=== PATIENT | female | born 1980 | race Caucasian/White ===

== ENCOUNTER 2017-11-14 10:33 | Emergency (ER) | payer MEDICAID ==
[~2017-11-14] VITALS: Ht 162.6 cm; Wt 74.7 kg
[~2017-11-14 10:33] MED LIST: ACET-812 PO; ALBU6.7H INH; DIPH-681 PO; NITR100C6 PO
[2017-11-14 10:43] VITALS: BP 107/63
[2017-11-14] MEDS ORDERED: TAM75C PO (11:07)
== END 2017-11-14 11:35 | disposition home or self-care (01) ==
LOC: ER 10:34
DX: R05 Cough (principal); J45.909 Unspecified asthma, uncomplicated; K21.9 Gastro-esophageal reflux disease without esophagitis; F17.200 Nicotine dependence, unspecified, uncomplicated; F12.10 Cannabis abuse, uncomplicated; Z87.442 Personal history of urinary calculi; Z88.0 Allergy status to penicillin; Z88.2 Allergy status to sulfonamides; Z88.6 Allergy status to analgesic agent; Z88.1 Allergy status to other antibiotic agents; Z56.0 Unemployment, unspecified; Z88.8 Allergy status to other drugs, medicaments and biological substances; Z91.040 Latex allergy status
CPT/HCPCS: 99283

== ENCOUNTER 2018-03-22 12:54 | Emergency (ER) | payer MEDICAID ==
[~2018-03-22] VITALS: Ht 160 cm; Wt 71.0 kg
[2018-03-22 13:06] VITALS: BP 116/77
[2018-03-22 13:32] LABS: CLARITY,URINE CLOUDY (Clear); COLOR,URINE YELLOW (Yellow); GLUCOSE, URINE NEGATIVE (Neg); KETONES,URINE NEGATIVE (Neg); LEUKOCYTE ESTERASE ,URINE TRACE (Neg); NITRITES, URINE NEGATIVE (Neg); OCCULT BLOOD,URINE NEGATIVE (Neg); PH,URINE 5.5 (4.8-8.0); PROTEIN,URINE NEGATIVE (Neg); UROBILINOGEN,URINE 0.2 E.U/dL (0.2-1.0)
[2018-03-22 13:33] LABS: UA COLLECTION TYPE CLN CATCH MIDSTREAM; URINE HCG NEGATIVE (NEG)
[2018-03-22 13:41] LABS: SQUAMOUS EPITHELIAL CELL,UR MANY /LPF (FEW)
[2018-03-22 13:43] LABS: BACTERIA,URINE 2+ /HPF (Neg)
[2018-03-22 13:44] LABS: MUCUS STRANDS MANY /LPF (Neg); RBC,URINE 0-2 /HPF (0-2)
[2018-03-22] MEDS ORDERED: NITR100C6 PO (13:52)
[2018-03-22] MEDS ORDERED: PHEN-824 PO (13:52)
== END 2018-03-22 14:06 | disposition home or self-care (01) ==
LOC: ER 12:54
DX: N39.0 Urinary tract infection, site not specified (principal); J45.909 Unspecified asthma, uncomplicated; K21.9 Gastro-esophageal reflux disease without esophagitis; F12.90 Cannabis use, unspecified, uncomplicated; Z88.0 Allergy status to penicillin; Z88.1 Allergy status to other antibiotic agents; Z88.2 Allergy status to sulfonamides; Z91.040 Latex allergy status; Z88.8 Allergy status to other drugs, medicaments and biological substances; Z79.899 Other long term (current) drug therapy; Z56.0 Unemployment, unspecified
CPT/HCPCS: 81001; 81025; 99283

== ENCOUNTER 2018-05-10 12:50 | Emergency (ER) | payer MEDICAID ==
[~2018-05-10] VITALS: Ht 162.6 cm; Wt 65.0 kg
[~2018-05-10 12:50] MED LIST changes: +PHEN-824 PO
[2018-05-10] MEDS ORDERED: normal saline 1000ML IV soln IV ONE (13:10)
[2018-05-10 13:35] LABS: BASOPHILS % (AUTO) 0.1 % (0-1); EOSINOPHILS # (AUTO) 0.3 X10'3 (0-0.9); EOSINOPHILS % (AUTO) 1.9 % (0-6); HEMATOCRIT 37.5 % (35.0-45.0); HEMOGLOBIN 12.4 g/dl (12.0-16.0); LYMPHOCYTES # (AUTO) 1.2 X10'3 (1.1-4.8); LYMPHOCYTES % (AUTO) 9.2 % (21-51); MEAN CORPUSCULAR HGB CONC 33.1 % (33.0-36.5); MEAN CORPUSCULAR VOLUME 84.4 FL (78-98); MEAN PLATELET VOLUME 7.6 FL (7.4-10.4); MONOCYTES # (AUTO) 0.6 X10'3 (0-0.9); MONOCYTES % (AUTO) 4.6 % (2-12); NEUTROPHILS % (AUTO) 84.2 % (42-75); PLATELET COUNT 430 X10'3 (140-440); RED BLOOD COUNT 4.44 X10'6 (4.20-5.60); RED CELL DISTRIBUTION WIDTH 15.4 % (11.5-14.5); WHITE BLOOD COUNT 13.1 X10'3 (4.5-11.0)
[2018-05-10 13:41] LABS: ALANINE AMINOTRANSFERASE 15 U/L (12-78); ALBUMIN 3.5 G/DL (3.4-5.0); ALBUMIN/GLOBULIN RATIO 0.8 (1.1-1.5); ALKALINE PHOSPHATASE 71 IU/L (46-116); ANION GAP 11 (8-16); ASPARTATE AMINO TRANSFERASE 11 U/L (10-37); BILIRUBIN,TOTAL 0.5 MG/DL (0.1-1.0); BLOOD UREA NITROGEN 16 MG/DL (7-18); BUN/CREATININE RATIO 15.2 (6.6-38.0); CHLORIDE 101 MMOL/L (99-107); CREATININE 1.05 MG/DL (0.40-0.90); GLUCOSE 140 MG/DL (70-104); POTASSIUM 3.5 MMOL/L (3.5-5.1); SODIUM 136 MMOL/L (135-145); eGFR 59 ML/MIN
[2018-05-10 13:49] LABS: MAGNESIUM 1.8 MG/DL (1.5-2.4); PHOSPHORUS 2.4 MG/DL (2.3-4.5)
[2018-05-10] MEDS ORDERED: proCHLORperazine 10 MG/2 ml inj IV PRN (13:55)
[2018-05-10 14:40] LABS: URINE HCG NEGATIVE (NEG)
[2018-05-10 14:55] LABS: CLARITY,URINE SLIGHTLY CLOUDY (Clear); COLOR,URINE YELLOW (Yellow); GLUCOSE, URINE NEGATIVE (Neg); KETONES,URINE NEGATIVE (Neg); LEUKOCYTE ESTERASE ,URINE LARGE (Neg); NITRITES, URINE NEGATIVE (Neg); OCCULT BLOOD,URINE TRACE-INTACT (Neg); PH,URINE 5.5 (4.8-8.0); PROTEIN,URINE TRACE mg/dl (Neg); UROBILINOGEN,URINE 0.2 E.U/dL (0.2-1.0)
[2018-05-10 14:57] LABS: UA COLLECTION TYPE CLN CATCH MIDSTREAM
[2018-05-10] MEDS ORDERED: NITR100C6 PO (15:02)
[2018-05-10 15:05] LABS: MUCUS STRANDS MANY /LPF (Neg); SQUAMOUS EPITHELIAL CELL,UR MANY /LPF (FEW)
[2018-05-10 15:06] LABS: BACTERIA,URINE 2+ /HPF (Neg)
[2018-05-10 15:07] LABS: RBC,URINE 0-2 /HPF (0-2); WBC,URINE 20-30 /HPF (0-4)
[2018-05-10 16:03] VITALS: BP 113/74
[2018-05-12 11:16] LABS: RPR Reactive (Non Reactive)
== END 2018-05-10 16:04 | disposition home or self-care (01) ==
LOC: ER 12:51
DX: N39.0 Urinary tract infection, site not specified (principal); R55 Syncope and collapse; R53.1 Weakness; R42 Dizziness and giddiness; K21.9 Gastro-esophageal reflux disease without esophagitis; J45.909 Unspecified asthma, uncomplicated; F12.90 Cannabis use, unspecified, uncomplicated; Z88.0 Allergy status to penicillin; Z88.1 Allergy status to other antibiotic agents; Z91.040 Latex allergy status; Z88.6 Allergy status to analgesic agent; Z88.2 Allergy status to sulfonamides; Z88.8 Allergy status to other drugs, medicaments and biological substances; Z79.899 Other long term (current) drug therapy; Z56.0 Unemployment, unspecified
CPT/HCPCS: 36415; 80053; 81001; 81025; 83735; 84100; 84443; 84484; 85025; 86592; 96360; 96361; 99285; J7030

== ENCOUNTER 2018-05-16 13:35 | Emergency (ER) | payer MEDICAID ==
[~2018-05-16] VITALS: Ht 162.6 cm; Wt 67.0 kg
[2018-05-16 13:47] VITALS: BP 109/63
[2018-05-16] MEDS ORDERED: DOXY100C43 PO (15:21)
== END 2018-05-16 15:27 | disposition home or self-care (01) ==
LOC: ER 13:36
DX: A51.0 Primary genital syphilis (principal); J45.909 Unspecified asthma, uncomplicated; K21.9 Gastro-esophageal reflux disease without esophagitis; F12.10 Cannabis abuse, uncomplicated; Z87.442 Personal history of urinary calculi; Z56.0 Unemployment, unspecified; Z88.0 Allergy status to penicillin; Z88.1 Allergy status to other antibiotic agents; Z88.2 Allergy status to sulfonamides; Z79.899 Other long term (current) drug therapy
CPT/HCPCS: 99283

== ENCOUNTER 2018-06-29 10:30 | Emergency (ER) | payer MEDICAID ==
[~2018-06-29] VITALS: Ht 167.6 cm; Wt 69.0 kg
[2018-06-29 10:36] VITALS: BP 111/66
[2018-06-29] MEDS ORDERED: ketorolac tromethamine 15mg/ml inj. IM ONE (11:55)
[2018-06-29] MEDS ORDERED: ketorolac trometh inj. 60 MG/2 ML VIAL IM ONE (12:35)
== END 2018-06-29 12:42 | disposition home or self-care (01) ==
LOC: ER 10:31
DX: M25.512 Pain in left shoulder (principal); J45.909 Unspecified asthma, uncomplicated; K21.9 Gastro-esophageal reflux disease without esophagitis; F12.90 Cannabis use, unspecified, uncomplicated; Z88.0 Allergy status to penicillin; Z88.1 Allergy status to other antibiotic agents; Z91.040 Latex allergy status; Z88.2 Allergy status to sulfonamides; Z88.6 Allergy status to analgesic agent; Z87.442 Personal history of urinary calculi; Z56.0 Unemployment, unspecified; Z79.899 Other long term (current) drug therapy
CPT/HCPCS: 73000; 96372; 99284; A4565; J1885

== ENCOUNTER 2019-03-29 12:27 | Emergency (ER) | payer MEDICAID ==
[~2019-03-29] VITALS: Ht 162.6 cm; Wt 66.0 kg
[2019-03-29 13:10] LABS: BASOPHILS # (AUTO) 0.1 X10'3 (0-0.2); BASOPHILS % (AUTO) 1.1 % (0-1); EOSINOPHILS # (AUTO) 0.1 X10'3 (0-0.9); EOSINOPHILS % (AUTO) 1.6 % (0-6); HEMATOCRIT 39.7 % (35.0-45.0); HEMOGLOBIN 13.4 g/dl (12.0-16.0); LYMPHOCYTES # (AUTO) 2.4 X10'3 (1.1-4.8); LYMPHOCYTES % (AUTO) 28.9 % (21-51); MEAN CORPUSCULAR HEMOGLOBIN 30.4 PG (27.0-31.0); MEAN CORPUSCULAR HGB CONC 33.7 g/dL (33.0-36.5); MEAN CORPUSCULAR VOLUME 90.2 FL (78-98); MEAN PLATELET VOLUME 7.3 FL (7.4-10.4); MONOCYTES # (AUTO) 0.5 X10'3 (0-0.9); MONOCYTES % (AUTO) 6.5 % (2-12); NEUTROPHILS # (AUTO) 5.2 X10'3 (1.8-7.7); NEUTROPHILS % (AUTO) 61.9 % (42-75); PLATELET COUNT 509 X10'3 (140-440); RED BLOOD COUNT 4.41 X10'6 (4.20-5.60); WHITE BLOOD COUNT 8.4 X10'3 (4.5-11.0)
[2019-03-29 13:14] LABS: URINE HCG NEGATIVE (NEG)
[2019-03-29 13:20] LABS: CLARITY,URINE CLOUDY (Clear); COLOR,URINE RED (Yellow); GLUCOSE, URINE NEGATIVE (Neg); KETONES,URINE NEGATIVE (Neg); LEUKOCYTE ESTERASE ,URINE SMALL (Neg); NITRITES, URINE NEGATIVE (Neg); OCCULT BLOOD,URINE LARGE (Neg); PH,URINE 5.5 (4.8-8.0); PROTEIN,URINE 100 mg/dl (Neg); UROBILINOGEN,URINE 0.2 E.U/dL (0.2-1.0)
[2019-03-29 13:25] LABS: ALANINE AMINOTRANSFERASE 14 U/L (12-78); ALBUMIN 3.5 G/DL (3.4-5.0); ALBUMIN/GLOBULIN RATIO 0.9 (1.1-1.5); ALKALINE PHOSPHATASE 77 IU/L (46-116); ANION GAP 6 (8-16); ASPARTATE AMINO TRANSFERASE 7 U/L (10-37); BILIRUBIN,TOTAL 0.3 MG/DL (0.1-1.0); BLOOD UREA NITROGEN 11 MG/DL (7-18); BUN/CREATININE RATIO 12.2 (6.6-38.0); CHLORIDE 105 MMOL/L (99-107); GLUCOSE 86 MG/DL (70-104); POTASSIUM 3.9 MMOL/L (3.5-5.1); SODIUM 140 MMOL/L (135-145); TOTAL PROTEIN 7.3 G/DL (6.4-8.2); eGFR 70 ML/MIN
[2019-03-29 13:29] LABS: BETA HCG,QUANTITATIVE < 1.0 mIU/ml; UA COLLECTION TYPE CLN CATCH MIDSTREAM
[2019-03-29 13:34] LABS: BACTERIA,URINE 3+ /HPF (Neg); MUCUS STRANDS NONE SEEN /LPF (Neg); RBC,URINE TNTC /HPF (0-2); SQUAMOUS EPITHELIAL CELL,UR MANY /LPF (FEW); TRANSITIONAL EPI CELLS,URINE FEW /HPF
[2019-03-29 13:45] VITALS: BP 113/86
== END 2019-03-29 13:48 | disposition home or self-care (01) ==
LOC: ER 12:28
DX: O20.9 Hemorrhage in early pregnancy, unspecified (principal); O26.891 Other specified pregnancy related conditions, first trimester; O99.511 Diseases of the respiratory system complicating pregnancy, first trimester; O99.611 Diseases of the digestive system complicating pregnancy, first trimester; S93.492A Sprain of other ligament of left ankle, initial encounter; J45.909 Unspecified asthma, uncomplicated; F12.90 Cannabis use, unspecified, uncomplicated; K21.9 Gastro-esophageal reflux disease without esophagitis; Z56.0 Unemployment, unspecified; Z87.442 Personal history of urinary calculi; Z88.0 Allergy status to penicillin; Z88.1 Allergy status to other antibiotic agents; Z88.2 Allergy status to sulfonamides; Z91.040 Latex allergy status; Z79.899 Other long term (current) drug therapy; Z88.8 Allergy status to other drugs, medicaments and biological substances; Z3A.12 12 weeks gestation of pregnancy
CPT/HCPCS: 36415; 73610; 73630; 80053; 81001; 81025; 84702; 85025; 99284

== ENCOUNTER 2019-05-10 00:37 | Emergency (ER) | payer MEDICAID ==
[~2019-05-10] VITALS: Ht 162.6 cm; Wt 63.5 kg
[~2019-05-10 00:37] MED LIST changes: -ALBU6.7H INH; +ALBU6.7H9 INH
[2019-05-10] MEDS ORDERED: ACET-3068 PO (01:33)
[2019-05-10] MEDS ORDERED: CEPH500C5 PO (01:33)
[2019-05-10] MEDS ORDERED: vancomycin/NS 1 GM ADD-VANTAGE 250 ML IV ONE (01:35)
[2019-05-10] MEDS ORDERED: morphine 4 MG/ML inj SYRINge IV ONE (01:35)
[2019-05-10 03:44] VITALS: BP 123/69
== END 2019-05-10 03:47 | disposition home or self-care (01) ==
LOC: ER 00:37
DX: T63.301A Toxic effect of unspecified spider venom, accidental (unintentional), initial encounter (principal); L03.211 Cellulitis of face; J45.909 Unspecified asthma, uncomplicated; K21.9 Gastro-esophageal reflux disease without esophagitis; F17.200 Nicotine dependence, unspecified, uncomplicated; F12.90 Cannabis use, unspecified, uncomplicated; Z56.0 Unemployment, unspecified; Z88.0 Allergy status to penicillin; Z88.1 Allergy status to other antibiotic agents; Z91.040 Latex allergy status; Z88.2 Allergy status to sulfonamides; Z88.6 Allergy status to analgesic agent; Z79.899 Other long term (current) drug therapy; Z79.2 Long term (current) use of antibiotics; Y92.89 Other specified places as the place of occurrence of the external cause
CPT/HCPCS: 96365; 96375; 99284; J2270; J3370; 99283

== ENCOUNTER 2019-05-12 06:44 | Emergency (ER) | payer MEDICAID ==
[~2019-05-12] VITALS: Ht 162.6 cm; Wt 63.6 kg
[~2019-05-12 06:44] MED LIST changes: +ACET-3068 PO; +CEPH500C5 PO
[2019-05-12] MEDS ORDERED: LIDOcaine 1% w/epiNEPHrine 1:200,000 30ml vial IM ONE (07:20)
--- NOTE | 2019-05-12 08:28 | NUR ---
ORTHO CARLY IN ROOM
[2019-05-12] MEDS ORDERED: TRAM50TA2 PO (08:38)
[2019-05-12] MEDS ORDERED: CLIN-96 PO (08:38)
[2019-05-12 08:43] VITALS: BP 136/90
== END 2019-05-12 08:50 | disposition home or self-care (01) ==
LOC: ER 06:45
DX: S62.316A Displaced fracture of base of fifth metacarpal bone, right hand, initial encounter for closed fracture (principal); L02.01 Cutaneous abscess of face; J45.909 Unspecified asthma, uncomplicated; K21.9 Gastro-esophageal reflux disease without esophagitis; F17.200 Nicotine dependence, unspecified, uncomplicated; F12.90 Cannabis use, unspecified, uncomplicated; F15.90 Other stimulant use, unspecified, uncomplicated; Z56.0 Unemployment, unspecified; Z88.0 Allergy status to penicillin; Z87.442 Personal history of urinary calculi; Z88.1 Allergy status to other antibiotic agents; Z91.040 Latex allergy status; Z88.2 Allergy status to sulfonamides; Z88.6 Allergy status to analgesic agent; Z88.8 Allergy status to other drugs, medicaments and biological substances; Z79.2 Long term (current) use of antibiotics; Z79.899 Other long term (current) drug therapy; W22.8XXA Striking against or struck by other objects, initial encounter; Y93.89 Activity, other specified; Y92.89 Other specified places as the place of occurrence of the external cause; Y99.8 Other external cause status
CPT/HCPCS: 10060; 29125; 73130; 99283

== ENCOUNTER 2019-05-30 12:48 | Emergency (ER) | payer MEDICAID ==
[~2019-05-30] VITALS: Ht 162.6 cm; Wt 63.6 kg
[~2019-05-30 12:48] MED LIST changes: +CLIN-96 PO
--- NOTE | 2019-05-30 13:00 | NUR ---
Patient brought back directly from Triage to Bed 21 via ambulatory, assisted by kishan Edmonds. Changed into hospital gowns and made comfortable in bed. Served lunch. Ate 100% of her meal. Dr. Houston here to examine the patient. Orders written. Xray performed on right hand. Fracture noted. chief technology officer here to cast hand. Pt. tolerated this procedure well.
[2019-05-30 13:42] LABS: ALANINE AMINOTRANSFERASE 23 U/L (12-78); ALBUMIN 3.7 G/DL (3.4-5.0); ALBUMIN/GLOBULIN RATIO 0.9 (1.1-1.5); ALKALINE PHOSPHATASE 77 IU/L (46-116); ANION GAP 7 (8-16); ASPARTATE AMINO TRANSFERASE 14 U/L (10-37); BILIRUBIN,TOTAL 0.5 MG/DL (0.1-1.0); BLOOD UREA NITROGEN 20 MG/DL (7-18); BUN/CREATININE RATIO 20.8 (6.6-38.0); CALCIUM 8.8 MG/DL (8.5-10.1); CHLORIDE 104 MMOL/L (99-107); CREATININE 0.96 MG/DL (0.40-0.90); GLUCOSE 161 MG/DL (70-104); POTASSIUM 3.7 MMOL/L (3.5-5.1); SODIUM 138 MMOL/L (135-145); TOTAL CARBON DIOXIDE 27.2 MMOL/L (24-32); TOTAL PROTEIN 7.7 G/DL (6.4-8.2); eGFR 65 ML/MIN
[2019-05-30 13:52] LABS: ETHANOL < 0.010 GM/DL (0.0-0.010)
[2019-05-30 14:05] LABS: BASOPHILS # (AUTO) 0.1 X10'3 (0-0.2); BASOPHILS % (AUTO) 0.6 % (0-1); EOSINOPHILS # (AUTO) 0.1 X10'3 (0-0.9); HEMATOCRIT 42.2 % (35.0-45.0); HEMOGLOBIN 14.3 g/dl (12.0-16.0); LYMPHOCYTES # (AUTO) 1.6 X10'3 (1.1-4.8); LYMPHOCYTES % (AUTO) 16.7 % (21-51); MEAN CORPUSCULAR HEMOGLOBIN 30.5 PG (27.0-31.0); MEAN CORPUSCULAR HGB CONC 33.8 g/dL (33.0-36.5); MEAN CORPUSCULAR VOLUME 90.1 FL (78-98); MEAN PLATELET VOLUME 7.8 FL (7.4-10.4); MONOCYTES # (AUTO) 0.4 X10'3 (0-0.9); MONOCYTES % (AUTO) 4.4 % (2-12); NEUTROPHILS # (AUTO) 7.6 X10'3 (1.8-7.7); NEUTROPHILS % (AUTO) 77.3 % (42-75); PLATELET COUNT 476 X10'3 (140-440); RED BLOOD COUNT 4.68 X10'6 (4.20-5.60); RED CELL DISTRIBUTION WIDTH 13.7 % (11.5-14.5); WHITE BLOOD COUNT 9.8 X10'3 (4.5-11.0)
[2019-05-30] MEDS ORDERED: TETanus/Pertussis (Acell)/Diphther VAC/PF (Tdap-Adult) 0.5ml syringe IM ONE (14:15)
--- NOTE | 2019-05-30 17:19 | NUR ---
Patient has slept throughout the shift. Resting comfortably at this time.
[2019-05-30 17:32] LABS: CLARITY,URINE CLOUDY (Clear); COLOR,URINE YELLOW (Yellow); GLUCOSE, URINE NEGATIVE (Neg); KETONES,URINE NEGATIVE (Neg); LEUKOCYTE ESTERASE ,URINE NEGATIVE (Neg); NITRITES, URINE NEGATIVE (Neg); OCCULT BLOOD,URINE NEGATIVE (Neg); PH,URINE 5.5 (4.8-8.0); PROTEIN,URINE NEGATIVE (Neg); URINE HCG NEGATIVE (NEG); UROBILINOGEN,URINE 0.2 E.U/dL (0.2-1.0)
[2019-05-30 17:34] LABS: UA COLLECTION TYPE CLN CATCH MIDSTREAM
[2019-05-30 17:41] LABS: HYALINE CASTS 0-3 /LPF (NEGATIVE); MUCUS STRANDS FEW /LPF (Neg); SQUAMOUS EPITHELIAL CELL,UR FEW /LPF (FEW)
[2019-05-30 17:42] LABS: BACTERIA,URINE FEW /HPF (Neg); CAL OXALATE CRYSTALS FEW /HPF (NEGATIVE); RBC,URINE 0-2 /HPF (0-2); WBC,URINE 0-4 /HPF (0-4)
[2019-05-30 17:43] LABS: URINE AMPHETAMINE SCREEN POSITIVE (Neg); URINE BARBITUATE SCREEN NEGATIVE (Neg); URINE BENZODIAZEPINES SCREEN NEGATIVE (Neg); URINE CANNABINOID SCREEN POSITIVE (Neg); URINE COCAINE SCREEN NEGATIVE (Neg); URINE METHADONE SCREEN NEGATIVE (Neg); URINE OPIATE SCREEN NEGATIVE (Neg); URINE PHENCYCLIDINE SCREEN NEGATIVE (Neg)
--- NOTE | 2019-05-30 18:30 | NUR ---
Assumed pt care. Pt currently resting in bed with eyes closed, respirations normal.
--- NOTE | 2019-05-30 20:00 | NUR ---
Pt complaining of right hand pain. Pt allergic to NSAIDS. Tylenol ordered.
[2019-05-30] MEDS: acetaminophen 325mg tablet PO PRN (20:22)
--- NOTE | 2019-05-31 06:34 | NUR ---
Patient sleeping on left side. No distress observed. Continue to monitor.
--- NOTE | 2019-05-31 06:55 | NUR ---
Patient ambulatory to BR, steady gait. No distress observed. Continue to monitor.
--- NOTE | 2019-05-31 08:20 | NUR ---
Patient eating breakfast. No distress observed. Continue to monitor.
[2019-05-31] MEDS: acetaminophen 325mg tablet PO PRN (08:48)
--- NOTE | 2019-05-31 09:20 | NUR ---
Patient states Tylenol does not work for her pain and she needs "something else". Patient states ibuprofen causes bleeding and can't take NSAIDS. RN spoke to Dr Velez who stated patient's fracture is 2 weeks out and will only prescribe Tylenol. Patient got angry. Continue to monitor.
--- NOTE | 2019-05-31 11:10 | NUR ---
Patient c/o pain and states she will refuse to take the Tylenol because it doesn't help. Continue to monitor.
--- NOTE | 2019-05-31 12:45 | NUR ---
Patient eating lunch. No distress observed. Continue to monitor.
--- NOTE | 2019-05-31 14:10 | NUR ---
Patient sleeping. No distress observed. Continue to monitor.
--- NOTE | 2019-05-31 15:52 | NUR ---
Patient sleeping on left side. No distress observed. Continue to monitor.
--- NOTE | 2019-05-31 16:28 | NUR ---
Patient sleeping on left side. No distress observed. Continue to monitor.
--- NOTE | 2019-05-31 18:37 | NUR ---
Patient eating. No distress observed. Continue to monitor.
--- NOTE | 2019-05-31 21:11 | NUR ---
Patient sleeping supine. No distress observed. Continue to monitor.
--- NOTE | 2019-05-31 22:15 | NUR ---
Patient sleeping on her right side. No distress observed. Continue to monitor.
--- NOTE | 2019-05-31 23:35 | NUR ---
Patient sleeping on right side. No distress observed. Continue to monitor.
--- NOTE | 2019-06-01 | NUR ---
Received report from Saba GONZALES, patient resting comfortably at this time
--- NOTE | 2019-06-01 00:57 | NUR ---
Received report from Saba GONZALES, patient resting comfortably at this time
--- NOTE | 2019-06-01 01:07 | NUR ---
Patient sleeping on left side no signs of distress
--- NOTE | 2019-06-01 02:02 | NUR ---
Patient up to restroom with out assistance returned to bed and is sleeping on left side at this time
--- NOTE | 2019-06-01 02:35 | NUR ---
Breaking primary RN, pt is laying on her left side, eyes closed, appears to be asleep, no s/s of distress observed, will continue to monitor
--- NOTE | 2019-06-01 03:08 | NUR ---
Patient sleeping on left side, no distress
--- NOTE | 2019-06-01 04:01 | NUR ---
Patient sleeping on right side, no distress
--- NOTE | 2019-06-01 05:04 | NUR ---
Patient resting comfortably on left side, no distress
[2019-06-01 05:43] VITALS: BP 102/64
--- NOTE | 2019-06-01 06:42 | NUR ---
PT RESTING ON RIGHT SIDE. PT HAS A CAST TO RIGHT HAND/ARM CSMS INTACT. NO NEEDS AT THIS TIME
--- NOTE | 2019-06-01 07:27 | NUR ---
UP TO BR. STEADY GATE, NO NEEDS AT THIS TIME
--- NOTE | 2019-06-01 08:37 | NUR ---
pT CAST IS LOOSE, ABLE TO MOVE IT UP AND DOWN.
[2019-06-01] MEDS ORDERED: NO HOME MEDS (12:53)
== END 2019-06-01 12:29 ==
LOC: ER 12:48
DX: F32.9 Major depressive disorder, single episode, unspecified (principal); S62.91XD Unspecified fracture of right hand, subsequent encounter for fracture with routine healing; K21.9 Gastro-esophageal reflux disease without esophagitis; F12.90 Cannabis use, unspecified, uncomplicated; F15.90 Other stimulant use, unspecified, uncomplicated; J45.909 Unspecified asthma, uncomplicated; Z88.0 Allergy status to penicillin; Z88.1 Allergy status to other antibiotic agents; Z91.040 Latex allergy status; Z88.2 Allergy status to sulfonamides; Z88.6 Allergy status to analgesic agent; Z79.2 Long term (current) use of antibiotics; Z79.1 Long term (current) use of non-steroidal anti-inflammatories (NSAID); Z87.19 Personal history of other diseases of the digestive system; Z87.440 Personal history of urinary (tract) infections; Z87.442 Personal history of urinary calculi; Z79.899 Other long term (current) drug therapy; Z56.0 Unemployment, unspecified; X58.XXXD Exposure to other specified factors, subsequent encounter
CPT/HCPCS: 29125; 36415; 73130; 80053; 80305; 80320; 81001; 81025; 84443; 85025; 90471; 99285

== ENCOUNTER 2019-06-01 11:20 | Inpatient (IN) | payer MEDICAID ==
[~2019-06-01] VITALS: Ht 162.6 cm; Wt 56.6 kg
[2019-06-01] MEDS ORDERED: acetaminophen 325mg tablet PO PRN ×2 (12:50)
[2019-06-01] MEDS ORDERED: tuberculin, purif. prot. deriv. 5 units/0.1ml ID ONE (12:50)
[2019-06-01] MEDS ORDERED: LORazepam 1 MG tablet PO PRN (12:50)
[2019-06-01] MEDS ORDERED: loperamide 2mg capsule PO PRN (12:50)
[2019-06-01] MEDS ORDERED: mag hydrox/Alum hydrox/simeth 30ml oral suspension PO PRN (12:50)
[2019-06-01] MEDS ORDERED: hydrOXYzine 25 MG tablet PO PRN (12:50)
[2019-06-01] MEDS ORDERED: magnesium hydroxide 30ml (MOM) UD suspension PO PRN (12:50)
[2019-06-01] MEDS ORDERED: NO HOME MEDS (12:53)
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
--- NOTE | 2019-06-01 17:00 | NUR ---
Pt. requires left food soak with betadine and warm water q shift per Dr. Tubbs
[2019-06-01] MEDS: lurasidone 20mg tablet PO SCH (17:23)
[2019-06-01] MEDS: traMADol 50MG tablet PO PRN (17:28)
[2019-06-01 20:00] VITALS: BP 104/60
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
[2019-06-02 06:58] LABS: CHOL/HDL RATIO 3.8 (0.00-4.99); CHOLESTEROL 168 MG/DL (0-200); HDL CHOLESTEROL 44 MG/DL (35-60); LDL CHOLESTEROL 111 MG/DL (50-100); TRIGLYCERIDES 57 MG/DL (20-135)
[2019-06-02] MEDS: lurasidone 20mg tablet PO SCH ×2 (07:37→17:40)
[2019-06-02 08:00] VITALS: BP 95/58
--- NOTE | 2019-06-02 09:49 | NUR ---
Malnutrition consult. Patient has a great appetite, eating 75-100% of meals, no edema, no muscle weakness, documented weights do show a 27 lb weight loss in one year, 18% loss. Since eating well, required no nutrition intervention at this time, meeting nutrition needs. Addendum: 06/02/19 at [address] Amended: Links added.
[2019-06-02] MEDS: traMADol 50MG tablet PO PRN ×2 (11:14→20:50)
[2019-06-02] MEDS: acetaminophen 325mg tablet PO PRN ×2 (11:19→20:49)
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
[2019-06-02 19:00] VITALS: BP 117/75
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
[2019-06-03 08:00] VITALS: BP 94/61
[2019-06-03] MEDS: lurasidone 20mg tablet PO SCH ×2 (08:01→17:39)
[2019-06-03] MEDS ORDERED: ALPRAZolam 0.5mg tablet PO PRN (15:45)
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
[2019-06-03] MEDS: traMADol 50MG tablet PO PRN (19:21)
[2019-06-03] MEDS: acetaminophen 325mg tablet PO PRN (19:27)
[2019-06-03 20:00] VITALS: BP 121/69
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
[2019-06-04] MEDS: lurasidone 20mg tablet PO SCH (07:28)
[2019-06-04 08:23] VITALS: BP 92/60
[2019-06-04] MEDS: traMADol 50MG tablet PO PRN (11:00)
[2019-06-04] MEDS ORDERED: LURA40TA3 PO ×2 (12:33→12:36)
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
[2019-06-04] MEDS ORDERED: lurasidone 20mg tablet PO SCH (17:00)
== END 2019-06-04 14:00 | disposition home or self-care (01) | DRG 753 ==
LOC: ADULT MH 12:44
PROVIDERS: ADMIT Psychiatry & Neurology Psychiatry; ATTEND Psychiatry & Neurology Psychiatry
DX: F31.4 Bipolar disorder, current episode depressed, severe, without psychotic features (principal); R45.851 Suicidal ideations; F15.10 Other stimulant abuse, uncomplicated; F17.210 Nicotine dependence, cigarettes, uncomplicated; F41.9 Anxiety disorder, unspecified; G43.909 Migraine, unspecified, not intractable, without status migrainosus; J45.909 Unspecified asthma, uncomplicated; F12.90 Cannabis use, unspecified, uncomplicated; K21.9 Gastro-esophageal reflux disease without esophagitis; X79.XXXA Intentional self-harm by blunt object, initial encounter; Z59.0 Homelessness; Z81.8 Family history of other mental and behavioral disorders; Z82.49 Family history of ischemic heart disease and other diseases of the circulatory system; Z82.5 Family history of asthma and other chronic lower respiratory diseases; Z82.62 Family history of osteoporosis; Z83.3 Family history of diabetes mellitus; Z87.442 Personal history of urinary calculi; Y93.89 Activity, other specified; Y92.89 Other specified places as the place of occurrence of the external cause; Y99.8 Other external cause status; Z98.51 Tubal ligation status; Z88.0 Allergy status to penicillin; Z88.2 Allergy status to sulfonamides; Z88.5 Allergy status to narcotic agent; Z91.018 Allergy to other foods; Z71.51 Drug abuse counseling and surveillance of drug abuser
CPT/HCPCS: 36415; 80061; 83036; 87081; Z7610

== ENCOUNTER 2019-07-29 17:47 | Emergency (ER) | payer MEDICAID ==
[~2019-07-29] VITALS: Ht 162.6 cm; Wt 65.9 kg
[~2019-07-29 17:47] MED LIST changes: -ACET-3068 PO; -ACET-812 PO; -ALBU6.7H9 INH; -CEPH500C5 PO; -CLIN-96 PO; -DIPH-681 PO; +LURA40TA3 PO; -NITR100C6 PO; -PHEN-824 PO
[2019-07-29 18:02] VITALS: BP 133/79
[2019-07-29] MEDS ORDERED: oxyCODONE/APAP 5-325mg tablet PO ONE (18:30)
[2019-07-29] MEDS ORDERED: LIDOcaine 1% w/EPI 1:200,000 injection 10mL vial IM ONE (18:30)
[2019-07-29] MEDS ORDERED: LIDOcaine 1% W/epiNEPHrine 1:200,000 10ml vial IJ ONE (18:35)
[2019-07-29] MEDS ORDERED: DOXYCYCLINE 100MG CAPSULE PO STA (18:42)
[2019-07-29] MEDS ORDERED: DOXY100C43 PO (19:02)
== END 2019-07-29 19:22 | disposition home or self-care (01) ==
LOC: ER 17:47
DX: L02.415 Cutaneous abscess of right lower limb (principal); J45.909 Unspecified asthma, uncomplicated; K21.9 Gastro-esophageal reflux disease without esophagitis; F17.200 Nicotine dependence, unspecified, uncomplicated; F12.90 Cannabis use, unspecified, uncomplicated; F15.90 Other stimulant use, unspecified, uncomplicated; Z88.0 Allergy status to penicillin; Z88.1 Allergy status to other antibiotic agents; Z91.040 Latex allergy status; Z88.2 Allergy status to sulfonamides; Z88.8 Allergy status to other drugs, medicaments and biological substances; Z79.899 Other long term (current) drug therapy; Z87.442 Personal history of urinary calculi; Z87.440 Personal history of urinary (tract) infections; Z56.0 Unemployment, unspecified
CPT/HCPCS: 10060; 99283; 99284

== ENCOUNTER 2019-09-05 00:24 | Emergency (ER) | payer MEDICAID ==
[~2019-09-05] VITALS: Ht 162.6 cm; Wt 65.9 kg
[2019-09-05] MEDS ORDERED: diphenhydrAMINE 25mg capsule PO ONE ×2 (01:15→02:15)
[2019-09-05] MEDS ORDERED: triamcinolone acetonide 40mg/ml inj IM ONE (01:15)
[2019-09-05] MEDS ORDERED: epiNEPHrine 1 mg/ml inj SQ ONE (01:15)
--- NOTE | 2019-09-05 02:10 | NUR ---
Pt reports improvement in overall symptoms.
[2019-09-05] MEDS ORDERED: DIPH25CA83 PO (02:14)
[2019-09-05 02:24] VITALS: BP 113/55
== END 2019-09-05 02:26 | disposition home or self-care (01) ==
LOC: ER 00:25
DX: T78.2XXA Anaphylactic shock, unspecified, initial encounter (principal); L50.9 Urticaria, unspecified; J45.909 Unspecified asthma, uncomplicated; K21.9 Gastro-esophageal reflux disease without esophagitis; F12.90 Cannabis use, unspecified, uncomplicated; F15.90 Other stimulant use, unspecified, uncomplicated; Z88.0 Allergy status to penicillin; Z88.1 Allergy status to other antibiotic agents; Z91.040 Latex allergy status; Z88.2 Allergy status to sulfonamides; Z79.899 Other long term (current) drug therapy; Z87.442 Personal history of urinary calculi; Z87.440 Personal history of urinary (tract) infections; Z87.19 Personal history of other diseases of the digestive system; Z56.0 Unemployment, unspecified; Y92.89 Other specified places as the place of occurrence of the external cause
CPT/HCPCS: 96372; 99283; J0171; J3301; Q0163

== ENCOUNTER 2019-11-01 10:18 | Emergency (ER) | payer MEDICAID ==
[~2019-11-01] VITALS: Ht 162.6 cm; Wt 67.1 kg
[~2019-11-01 10:18] MED LIST changes: +DIPH25CA83 PO
[2019-11-01 11:21] LABS: CLARITY,URINE TURBID (Clear); COLOR,URINE YELLOW (Yellow); GLUCOSE, URINE NEGATIVE (Neg); KETONES,URINE NEGATIVE (Neg); LEUKOCYTE ESTERASE ,URINE LARGE (Neg); NITRITES, URINE NEGATIVE (Neg); OCCULT BLOOD,URINE TRACE-LYSED (Neg); PH,URINE 5.5 (4.8-8.0); PROTEIN,URINE NEGATIVE (Neg); UROBILINOGEN,URINE 0.2 E.U/dL (0.2-1.0)
[2019-11-01 11:23] LABS: UA COLLECTION TYPE CLN CATCH MIDSTREAM
[2019-11-01 11:26] LABS: URINE HCG NEGATIVE (NEG)
[2019-11-01 11:35] LABS: SQUAMOUS EPITHELIAL CELL,UR MANY /LPF (FEW)
[2019-11-01 11:37] LABS: BACTERIA,URINE 4+ /HPF (Neg); RBC,URINE 0-2 /HPF (0-2); WBC,URINE 20-30 /HPF (0-4)
[2019-11-01] MEDS ORDERED: ONDA4TAB6 PO (12:26)
[2019-11-01] MEDS ORDERED: NITR100C6 PO (12:26)
[2019-11-01 12:41] VITALS: BP 117/72
== END 2019-11-01 12:42 | disposition home or self-care (01) ==
LOC: ER 10:19
DX: N39.0 Urinary tract infection, site not specified (principal); R11.0 Nausea; J45.909 Unspecified asthma, uncomplicated; K21.9 Gastro-esophageal reflux disease without esophagitis; F12.90 Cannabis use, unspecified, uncomplicated; F15.90 Other stimulant use, unspecified, uncomplicated; Z56.0 Unemployment, unspecified; Z88.0 Allergy status to penicillin; Z88.1 Allergy status to other antibiotic agents; Z91.040 Latex allergy status; Z88.2 Allergy status to sulfonamides; Z79.899 Other long term (current) drug therapy
CPT/HCPCS: 81001; 81025; 99283

== ENCOUNTER 2020-05-19 15:08 | Emergency (ER) | payer MEDICAID ==
[~2020-05-19] VITALS: Ht 162.6 cm; Wt 65.5 kg
[~2020-05-19 15:08] MED LIST changes: +NITR100C6 PO; +ONDA4TAB6 PO
[2020-05-19 15:24] VITALS: BP 117/80
[2020-05-19] MEDS ORDERED: clindamycin 150mg capsule PO ONE (16:00)
[2020-05-19] MEDS ORDERED: CLIN-97 PO ×2 (16:15→16:16)
== END 2020-05-19 16:26 | disposition home or self-care (01) ==
LOC: ER 15:08
DX: K02.9 Dental caries, unspecified (principal); J45.909 Unspecified asthma, uncomplicated; K21.9 Gastro-esophageal reflux disease without esophagitis; F12.90 Cannabis use, unspecified, uncomplicated; F15.90 Other stimulant use, unspecified, uncomplicated; Z56.0 Unemployment, unspecified; Z88.0 Allergy status to penicillin; Z88.1 Allergy status to other antibiotic agents; Z91.040 Latex allergy status; Z88.2 Allergy status to sulfonamides; Z88.8 Allergy status to other drugs, medicaments and biological substances; Z79.899 Other long term (current) drug therapy
CPT/HCPCS: 99283

== ENCOUNTER 2020-10-24 11:55 | Emergency (ER) | payer MEDICAID ==
[~2020-10-24] VITALS: Ht 162.6 cm; Wt 73.6 kg
[~2020-10-24 11:55] MED LIST changes: +CLIN-97 PO
[2020-10-24] MEDS ORDERED: dexamethasone sod phosphate 10mg/ml inj IV STA (12:01)
[2020-10-24] MEDS ORDERED: proCHLORperazine 10 MG/2 ml inj IV ONE (12:05)
[2020-10-24] MEDS ORDERED: SUMAtriptan succ. 6 MG/0.5ml vial SQ ONE (12:05)
[2020-10-24] MEDS ORDERED: normal saline 1000ML IV soln IVB ONE (12:05)
[2020-10-24] MEDS ORDERED: diphenhydrAMINE 50 mg/ml inj IV ONE (12:05)
[2020-10-24] MEDS ORDERED: SUMA25TA35 PO (13:08)
[2020-10-24] MEDS ORDERED: PROC5TAB56 PO (13:08)
[2020-10-24] MEDS ORDERED: ketorolac tromethamine 15mg/ml inj. IV ONE (13:10)
--- NOTE | 2020-10-24 15:46 | NUR ---
LOLA GONZALES WALKED THE PT IN THE HALLWAY .NO DISTRESS NOTED ,STEADY ON HER FEET .READY FOR D/C. DR WHITNEY AWARE.
[2020-10-24 15:48] VITALS: BP 106/69
== END 2020-10-24 15:51 | disposition home or self-care (01) ==
LOC: ER 11:56
DX: G43.909 Migraine, unspecified, not intractable, without status migrainosus (principal); R11.2 Nausea with vomiting, unspecified; J45.909 Unspecified asthma, uncomplicated; K21.9 Gastro-esophageal reflux disease without esophagitis; F12.90 Cannabis use, unspecified, uncomplicated; F15.90 Other stimulant use, unspecified, uncomplicated; Z87.442 Personal history of urinary calculi; Z87.440 Personal history of urinary (tract) infections; Z56.0 Unemployment, unspecified; Z88.0 Allergy status to penicillin; Z88.1 Allergy status to other antibiotic agents; Z91.040 Latex allergy status; Z88.2 Allergy status to sulfonamides; Z79.2 Long term (current) use of antibiotics; Z79.899 Other long term (current) drug therapy
CPT/HCPCS: 70450; 96361; 96372; 96374; 96375; 99284; J0780; J1100; J1200; J1885; J7030; J3030